=== PATIENT | female | born 1980 | race Caucasian/White ===

== ENCOUNTER 2022-07-20 11:54 | Outpatient (CLI) | payer BC | END 2022-07-20 11:55 | disposition home or self-care (01) | LOC: CSHMAMMO 11:54 | PROVIDERS: ATTEND Advanced Practice Midwife | DX: Z12.31 Encounter for screening mammogram for malignant neoplasm of breast (principal); N63.20 Unspecified lump in the left breast, unspecified quadrant | CPT/HCPCS: 77063; 77067 ==

== ENCOUNTER 2022-07-27 08:06 | Outpatient (CLI) | payer BC | END 2022-07-27 08:07 | disposition home or self-care (01) | LOC: CSHULT 08:06 | PROVIDERS: ATTEND Advanced Practice Midwife | DX: N63.21 Unspecified lump in the left breast, upper outer quadrant (principal) ==

== ENCOUNTER 2023-01-29 09:07 | Outpatient (CLI) | payer BC | END 2023-01-29 09:08 | disposition home or self-care (01) | LOC: CSHMAMMO 09:07 | PROVIDERS: ATTEND Advanced Practice Midwife | DX: N63.32 Unspecified lump in axillary tail of the left breast (principal) | CPT/HCPCS: G0279 ==

== ENCOUNTER 2024-03-04 08:58 | Outpatient (CLI) | payer BC | END 2024-03-04 08:59 | disposition home or self-care (01) | LOC: CSHMAMMO 08:58 | PROVIDERS: ATTEND Advanced Practice Midwife | DX: Z12.31 Encounter for screening mammogram for malignant neoplasm of breast (principal); Z80.3 Family history of malignant neoplasm of breast | CPT/HCPCS: 77063; 77067 ==

== ENCOUNTER 2025-03-05 08:59 | Outpatient (CLI) | payer BC | END 2025-03-05 09:00 | disposition home or self-care (01) | LOC: CSHMAMMO 08:59 | PROVIDERS: ATTEND Advanced Practice Midwife | DX: Z12.31 Encounter for screening mammogram for malignant neoplasm of breast (principal); Z80.3 Family history of malignant neoplasm of breast; R92.333 Mammographic heterogeneous density, bilateral breasts | CPT/HCPCS: 77063; 77067 ==